=== PATIENT | female | born 1990 | race Two or more races ===

== ENCOUNTER 2025-08-30 19:51 | Emergency (ER) | payer OTHER, SELFPAY ==
[2025-08-30 19:54] VITALS: BP 116/78
--- NOTE | 2025-08-30 20:54 | ED.GENMED ---
History of Present Illness
General
Chief Complaint: DVT/Possible Blood Clot
Source: patient
Exam Limitations: none
Time Seen by Provider: 08/30/25 20:21
Nursing documentation reviewed up to this point in time: agreed with
History of Present Illness
History of Present Illness:
34-year-old female with no chronic medical issues presents to the ER for evaluation of left leg pain. Patient reports a dull pain radiating down the left leg. She says it has been ongoing for the past few weeks and it seems to come and go. It
seems to be consistently worse at nighttime and wakes her up at night. It does seem to respond to ibuprofen. She denies any trauma or injury. She does occasionally feel that her left leg is a bit weak underneath her. She denies any associated
swelling or redness in the leg. She says she has never had similar symptoms in the past. She denies any recent travel or history of DVT/PE.
Review of Systems
Review of Systems
All Other Systems: ROS reviewed and negative except as documented in HPI and ROS
Respiratory: Denies trouble breathing
Cardiac: Denies chest pain
ABD/GI: Denies abdominal pain
Musculoskeletal: Reports muscle pain; Denies edema, neck pain or back pain
Neurological: Reports weakness; Denies headache
Phy Exam
Physical Exam
Physical Exam:
General: Awake, alert, nontoxic
Head: Normocephalic, atraumatic
Eyes: Conjunctiva normal
Throat: Airway intact, handling secretions
Neck: Trachea midline, supple without meningismus
Lungs: Breathing comfortably with no distress
Heart: Regular rate
Neuro: Cranial nerves grossly intact, speech fluid, motor and sensory intact in all extremities specifically motor and sensory intact proximally distally in the left lower extremity
Skin: no rash in area of concern
Extremities: No edema in extremities�specifically no left lower extremity edema, no calf tenderness, no palpable cords and no skin changes in the left lower extremity; no focal tenderness in the left lower extremity; strong pulses throughout left
lower extremity popliteal, DP, PT and good range of motion in the left hip and knee without pain
Scores
Heart Failure Risk
Heart Failure Risk Score: Not Applicable
Heart Score for Chest Pain Patients
STEMI patient?: Not applicable
Withdrawal Assessment of Alcohol
Withdrawal Assessment Completed?: Not applicable
Course
Orders/Labs/Results
Orders:
Orders
08/30/25 19:56
US Legs, Left [US Periph Venous LOWER Ext LT] Urgent
Comment:
Reason For Exam: left leg pain
08/30/25 21:47
Prednisone [Deltasone] 50 mg PO NOW STA
Vital Signs
Initial and Last Documented VS:
Initial Vital Signs
Temp Pulse Resp BP Pulse Ox
36.7 C 75 20 116/78 99
08/30/25 19:54 08/30/25 19:54 08/30/25 19:54 08/30/25 19:54 08/30/25 19:54
Last Documented Vital Signs
Temp Pulse Resp BP Pulse Ox
36.7 C 75 20 116/78 99
08/30/25 19:54 08/30/25 19:54 08/30/25 19:54 08/30/25 19:54 08/30/25 20:57
MDM/Problems Addressed
Differential Diagnosis Includes:
DVT, muscle strain, radiculopathy/sciatica; nothing by exam to suggest claudication/arterial occlusion; low suspicion for fracture with no traumatic mechanism, no focal tenderness, waxing waning pain, ambulatory patient
MDM/Problems Addressed:
34-year-old female presents for evaluation of left leg pain radiating down the leg worse at nighttime for the past few weeks. Vitals and exam as above. Overall suspect likely sciatica/radiculopathy however will check ultrasound to rule out DVT.
She has bounding pulses and warm extremity nothing to suggest arterial insufficiency/occlusion. No focal tenderness and no traumatic mechanism to suggest fracture or other similar injury. Will reassess after ultrasound can likely be discharged
with supportive care.
Ultrasound negative for DVT. Patient clinically stable. Overall suspect that this is likely sciatica/radiculopathy. Can trial prednisone taper, continue NSAIDs as needed. Follow-up with orthopedist if not improving. Patient comfortable with
this plan. All questions answered.
*Radiology
Radiology exam reviewed: radiology read reviewed
*Pulse Oximetry
SaO2: 99
Oxygen Mode of Delivery: Room air
Patient hypoxic: no (99%)
*Critical Care Note
Total Time (30-74mins, 75-104mins- exclusive of procedures): Not Applicable
Data Reviewed
Source: patient
ED Attending Note
-
Portions of this chart may have been created with voice recognition software.� Occasional wrong word or��sound alike� substitutions may have occurred due to the inherent limitations of voice recognition software.
Discharge Plan
Departure
Patient Disposition: Home (Routine Discharge)
Date of Disposition: 08/30/25
Time of Disposition: 21:47
Patient with high blood pressure during this ER visit?: No
Discharge Problem:
Left leg pain
Instructions: Sciatica - ED (DC)
Prescriptions:
New
prednisone 10 mg Tablet
See Rx Instructions .ROUTE .COMPLEX Qty: 45 0RF
Rx Instructions:
Take By Mouth:
50 mg daily x3 days, 40 mg daily x3 days,
30 mg daily x3 days, 20 mg daily x3 days,
10 mg daily x3 days
Referrals:
Hermelindo Aguilar MD [Active, Orthopedics] - Call in 1-3 days for appt
Activity Restrictions/Additional Instructions:
Thank you for visiting the Emergency Department at [facility].
1. Please schedule a follow up appointment as directed. Call first thing tomorrow morning to make an appointment.
2. If indicated, please take your medications as instructed and indicated on discharge paperwork.
3. If any of your symptoms do not improve, or persist, or become more severe within 6-12 hours, please return to the emergency department for further care.
4. Please return to the emergency department if you develop a headache, neck pain/stiffness, fever greater than 100.4F, chest pain, shortness of breath, persistent nausea, vomiting, slurred speech, difficulty walking, numbness/tingling, weakness,
signs of infection or any other symptoms that are worrisome to you.
Please call [phone] if you have any questions.
Interventions
Interventions:
*General Assessment Last Done: 08/30/25 19:54
*Neglect/Abuse Screening Last Done: 08/30/25 20:25
*Risk Screen - Suicide (C-SSRS) Last Done: 08/30/25 20:25
ED- Cardiac Assessment Last Done: 08/30/25 20:25
ED- Pulmonary Assessment Last Done: 08/30/25 20:25
ED-Peripheral Vascular Assessment Last Done: 08/30/25 20:25
ED-Skin Assessment Last Done: 08/30/25 20:25
Discharge Date and Time
Print Language: KOREAN
[2025-08-30] MEDS: DELTASONE 50 MG PO (21:54)
== END 2025-08-30 22:05 | disposition home or self-care (01) ==
LOC: EMR 19:51
PROVIDERS: EMERGENCY PHYSICIAN Emergency Medicine; FAMILY PHYSICIAN Internal Medicine
DX: M79.662 Pain in left lower leg (principal)
CPT/HCPCS: 99284; 93971